=== PATIENT | male | born 1965 | race American Indian/Alaskan Native ===

== ENCOUNTER 2018-05-26 08:07 | Inpatient (IN) | payer OTHER ==
[2018-05-26 08:34] LABS: Basophils # (Auto) 0.1 K/mm3 (0.0-0.1); Basophils % (Auto) 0.4 % (0.0-1.8); Eosinophils # (Auto) 0.2 K/mm3 (0.0-0.4); Eosinophils % (Auto) 1.3 % (0.0-4.3); Hematocrit 40.2 % (35.5-45.6); Hemoglobin 13.5 gm/dl (11.8-15.2); Lymphocytes # (Auto) 1.9 K/mm3 (1.2-5.4); Lymphocytes % (Auto) 14.3 % (13.4-35.0); Mean Corpuscular HGB Conc 34 % (32-34); Mean Corpuscular Hemoglobin 28 pg (28-32); Mean Corpuscular Volume 84 fl (84-94); Monocytes # (Auto) 0.9 K/mm3 (0.0-0.8); Monocytes % (Auto) 6.5 % (0.0-7.3); Platelet Count 317 K/mm3 (140-440); Red Blood Count 4.77 M/mm3 (3.65-5.03); Red Cell Distribution Width 14.9 % (13.2-15.2)
--- NOTE | 2018-05-26 08:40 | XRay Report ---
ROUTINE CHEST, TWO VIEWS: HISTORY: Shortness of breath. Bilateral perihilar infiltration is identified which probably represents mild pulmonary edema. Early bilateral infiltrates could be considered. No evidence for pleural effusion or pneumothorax. Heart size is within normal limits. The bony structures are intact. IMPRESSION: Bilateral perihilar infiltrates suggesting pulmonary edema or pneumonia. I favor pulmonary edema. Correlate with the patient's clinical presentation.
[2018-05-26 08:45] LABS: BUN/Creatinine Ratio 11; Blood Urea Nitrogen 10 mg/dL (9-20); Calcium 9.4 mg/dL (8.4-10.2); Hemolysis Index 1
--- NOTE | 2018-05-26 09:19 | Emergency Department Report ---
ED General Adult HPI - General Chief complaint: Dyspnea/Respdistress Stated complaint: SANDRA Time Seen by Provider: 05/26/18 09:15 Source: patient Mode of arrival: Ambulatory Limitations: No Limitations - History of Present Illness Initial comments: This is a 52-year-old man who complains of dyspnea on exertion, orthopnea, recently PND. He states he's had to sleep in a chair. He hasn't measured his blood pressure in many years. He states he hasn't seen a doctor in 25 years. He is currently taking no medications. His initial blood pressure at triage was 152/133, heart rate 121. He was placed in an examination area and found to have a blood pressure of about 140/101 I repeated it. He does not complain of chest pain. He has not complained of chest tightness or significant leg edema. Associated Symptoms: denies other symptoms - Related Data Home Medications Medication Instructions Recorded Confirmed Last Taken No Known Home Medications [No 05/26/18 05/26/18 Unknown Reported Home Medications] Allergies Allergy/AdvReac Type Severity Reaction Status Date / Time No Known Allergies Allergy Verified 05/26/18 13:47 ED Review of Systems ROS: Stated complaint: SANDRA Other details as noted in HPI Constitutional: denies: chills, fever Eyes: denies: eye pain, eye discharge, vision change ENT: denies: ear pain, throat pain Respiratory: shortness of breath, SOB with exertion. denies: cough, wheezing Cardiovascular: denies: chest pain, palpitations Endocrine: no symptoms reported Gastrointestinal: denies: abdominal pain, nausea, diarrhea Genitourinary: denies: urgency, dysuria Musculoskeletal: denies: back pain, joint swelling, arthralgia Skin: denies: rash, lesions Neurological: headache (occasional headaches but not currently. No severe headaches.). denies: weakness, numbness, paresthesias, confusion, abnormal gait , vertigo Psychiatric: denies: anxiety, depression Hematological/Lymphatic: denies: easy bleeding, easy bruising ED Past Medical Hx - Past Medical History Previous Medical History?: No - Surgical History Past Surgical History?: No - Social History Smoking Status: Current Every Day Smoker Substance Use Type: Marijuana - Medications Home Medications: Home Medications Medication Instructions Recorded Confirmed Last Taken Type No Known Home Medications [No 05/26/18 05/26/18 Unknown History Reported Home Medications] ED Physical Exam - General Limitations: No Limitations General appearance: alert, in no apparent distress - Head Head exam: Present: atraumatic, normocephalic - Eye Eye exam: Present: normal appearance, PERRL, EOMI. Absent: scleral icterus - ENT ENT exam: Present: mucous membranes moist - Neck Neck exam: Present: normal inspection. Absent: tenderness, meningismus - Respiratory Respiratory exam: Present: normal lung sounds bilaterally. Absent: respiratory distress - Cardiovascular Cardiovascular Exam: Present: regular rate, normal rhythm. Absent: systolic murmur, diastolic murmur, rubs, gallop - GI/Abdominal GI/Abdominal exam: Present: soft, normal bowel sounds. Absent: distended, tenderness, guarding, rebound, rigid - Rectal Rectal exam: Present: deferred - Extremities Exam Extremities exam: Present: normal inspection - Back Exam Back exam: Present: normal inspection - Neurological Exam Neurological exam: Present: alert, oriented X3, CN II-XII intact. Absent: motor sensory deficit - Psychiatric Psychiatric exam: Present: normal affect, normal mood - Skin Skin exam: Present: warm, dry, intact, normal color. Absent: rash ED Course Vital Signs 05/26/18 05/26/18 05/26/18 08:15 09:28 09:39 Temperature 97.8 F Pulse Rate 121 H 85 Respiratory 24 Rate Blood Pressure 152/133 143/101 O2 Sat by Pulse 98 Oximetry 05/26/18 05/26/18 05/26/18 09:46 09:52 10:00 Temperature Pulse Rate 118 H 111 H 112 H Respiratory 30 H 27 H Rate Blood Pressure 143/101 143/101 141/98 O2 Sat by Pulse 98 98 Oximetry 05/26/18 05/26/18 05/26/18 10:16 10:30 10:46 Temperature Pulse Rate 115 H 121 H 117 H Respiratory 36 H 26 H 35 H Rate Blood Pressure 138/90 138/109 146/98 O2 Sat by Pulse 98 98 98 Oximetry 05/26/18 05/26/18 05/26/18 11:00 11:46 12:00 Temperature Pulse Rate 118 H 113 H 108 H Respiratory 27 H 18 29 H Rate Blood Pressure 140/92 131/95 132/86 O2 Sat by Pulse 96 98 99 Oximetry 05/26/18 05/26/18 05/26/18 12:16 12:30 12:40 Temperature Pulse Rate 111 H 113 H 124 H Respiratory 23 30 H 30 H Rate Blood Pressure 139/89 144/91 O2 Sat by Pulse 98 97 97 Oximetry 05/26/18 05/26/18 05/26/18 12:50 13:00 13:10 Temperature Pulse Rate 115 H 111 H 110 H Respiratory 17 33 H 20 Rate Blood Pressure 113/65 113/65 O2 Sat by Pulse 98 99 98 Oximetry 05/26/18 13:20 Temperature Pulse Rate 119 H Respiratory 15 Rate Blood Pressure 161/145 O2 Sat by Pulse 99 Oximetry ED Medical Decision Making - Lab Data Result diagrams: 05/26/18 08:24 05/26/18 08:24 Laboratory Results - last 24 hr 05/26/18 05/26/18 08:24 08:24 WBC 13.3 H RBC 4.77 Hgb 13.5 Hct 40.2 MCV 84 MCH 28 MCHC 34 RDW 14.9 Plt Count 317 Lymph % (Auto) 14.3 [place] % (Auto) 6.5 Eos % (Auto) 1.3 Baso % (Auto) 0.4 Lymph # 1.9 [place] # 0.9 H Eos # 0.2 Baso # 0.1 Seg Neutrophils % 77.5 H Seg Neutrophils # 10.3 H Sodium 138 Potassium 4.0 Chloride 102.4 Carbon Dioxide 25 Anion Gap 15 BUN 10 Creatinine 0.9 Estimated GFR > 60 BUN/Creatinine Ratio 11 Glucose 111 H Calcium 9.4 Troponin T 0.019 - EKG Data -: EKG Interpreted by Me EKG shows normal: sinus rhythm - EKG Data Interpretation: other (biatrial abnormality right bundle branch block secondary repolarization abnormality) - Radiology Data Radiology results: report reviewed interpreted by me: Bilateral perihilar infiltration is identified which probably represents mild pulmonary edema. Early bilateral infiltrates could be considered. No evidence for pleural effusion or pneumothorax. Heart size is within normal limits. The bony structures are intact. IMPRESSION: Bilateral perihilar infiltrates suggesting pulmonary edema or pneumonia. I favor pulmonary edema. Correlate with the patient's clinical presentation. Critical care attestation.: If time is entered above; I have spent that time in minutes in the direct care of this critically ill patient, excluding procedure time. ED Disposition Clinical Impression: Uncontrolled hypertension Pulmonary edema Qualifiers: Chronicity: acute Qualified Code(s): J81.0 - Acute pulmonary edema Disposition: DC-09 OP ADMIT IP TO THIS HOSP Is pt being admited?: Yes Does the pt Need Aspirin: Yes Condition: Stable Time of Disposition: 11:35
[2018-05-26] MEDS ORDERED: LASIX IV ONE (09:20)
[2018-05-26] MEDS ORDERED: NORMODYNE IV ONE (09:20)
[2018-05-26] MEDS ORDERED: NITRO-BID 2% TP ONE (09:30)
[2018-05-26 09:40] LABS: Creatine Kinase MB 2.2 ng/mL (0.0-4.0)
[2018-05-26 09:41] LABS: Alanine Aminotransferase 20 units/L (7-56); Albumin 3.5 g/dL (3.9-5); Bilirubin,Direct < 0.2 mg/dL (0-0.2)
[2018-05-26 09:46] LABS: INR 1.05 (0.87-1.13)
--- NOTE | 2018-05-26 10:11 | History and Physical Report ---
History of Present Illness Chief complaint: orthopnea History of present illness: 52M with SOB he has never had any chronic illness, states that he had an insect bite on his left nipple which swole up and became and abscess and then burst, expelling a lot of pus. He then developed worsening orthopnea and COOK which was so bad that he had to sit up to sleep. He was co PND, denies CP or palpitations - Past History Past Medical History: No medical history Past Surgical History: No surgical history Social history: smoking, other (marijuana abuse) Family history: cancer, hypertension Medications and Allergies Allergies Allergy/AdvReac Type Severity Reaction Status Date / Time No Known Allergies Allergy Verified 05/26/18 13:47 Home Medications Medication Instructions Recorded Confirmed Last Taken Type No Known Home Medications [No 05/26/18 05/26/18 Unknown History Reported Home Medications] Review of Systems Constitutional: anorexia Ears, nose, mouth and throat: no sinus pain Cardiovascular: orthopnea, no chest pain, no palpitations, no edema Respiratory: no cough Gastrointestinal: no abdominal pain Genitourinary Male: no dysuria Musculoskeletal: no neck stiffness Neurological: no parathesias Psychiatric: no anxiety Endocrine: no cold intolerance Exam - Constitutional Vitals: Temp Pulse Resp BP Pulse Ox 97.8 F 111 H 24 143/101 98 05/26/18 08:15 05/26/18 09:52 05/26/18 08:15 05/26/18 09:52 05/26/18 08:15 General appearance: Present: no acute distress, well-nourished - EENT Eyes: Present: PERRL ENT: hearing intact, clear oral mucosa - Neck Neck: Present: supple, normal ROM - Respiratory Respiratory effort: normal Respiratory: bilateral: rales - Cardiovascular Heart Sounds: Present: S1 & S2. Absent: rub, click - Extremities Extremities: pulses symmetrical, No edema Peripheral Pulses: within normal limits - Abdominal General gastrointestinal: Present: soft, non-tender, non-distended, normal bowel sounds Male genitourinary: Present: normal - Integumentary Integumentary: Present: clear, warm (there is fluctuant swelling of left nipple cw abscess), dry - Musculoskeletal Musculoskeletal: gait normal, strength equal bilaterally - Psychiatric Psychiatric: appropriate mood/affect, intact judgment & insight - Neurologic Neurologic: CNII-XII intact, moves all extremities Results - Labs CBC & Chem 7: 05/26/18 08:24 05/27/18 03:54 Labs: Laboratory Last Values WBC 13.3 K/mm3 (4.5-11.0) H 05/26/18 08:24 RBC 4.77 M/mm3 (3.65-5.03) 05/26/18 08:24 Hgb 13.5 gm/dl (11.8-15.2) 05/26/18 08:24 Hct 40.2 % (35.5-45.6) 05/26/18 08:24 MCV 84 fl (84-94) 05/26/18 08:24 MCH 28 pg (28-32) 05/26/18 08:24 MCHC 34 % (32-34) 05/26/18 08:24 RDW 14.9 % (13.2-15.2) 05/26/18 08:24 Plt Count 317 K/mm3 (140-440) 05/26/18 08:24 Lymph % (Auto) 14.3 % (13.4-35.0) 05/26/18 08:24 [place] % (Auto) 6.5 % (0.0-7.3) 05/26/18 08:24 Eos % (Auto) 1.3 % (0.0-4.3) 05/26/18 08:24 Baso % (Auto) 0.4 % (0.0-1.8) 05/26/18 08:24 Lymph # 1.9 K/mm3 (1.2-5.4) 05/26/18 08:24 [place] # 0.9 K/mm3 (0.0-0.8) H 05/26/18 08:24 Eos # 0.2 K/mm3 (0.0-0.4) 05/26/18 08:24 Baso # 0.1 K/mm3 (0.0-0.1) 05/26/18 08:24 Seg Neutrophils % 77.5 % (40.0-70.0) H 05/26/18 08:24 Seg Neutrophils # 10.3 K/mm3 (1.8-7.7) H 05/26/18 08:24 PT 14.2 Sec. (12.2-14.9) 05/26/18 09:24 INR 1.05 (0.87-1.13) 05/26/18 09:24 APTT 31.0 Sec. (24.2-36.6) 05/26/18 09:24 Sodium 138 mmol/L (137-145) 05/26/18 08:24 Potassium 4.0 mmol/L (3.6-5.0) 05/26/18 08:24 Chloride 102.4 mmol/L (98-107) 05/26/18 08:24 Carbon Dioxide 25 mmol/L (22-30) 05/26/18 08:24 Anion Gap 15 mmol/L 05/26/18 08:24 BUN 10 mg/dL (9-20) 05/26/18 08:24 Creatinine 0.9 mg/dL (0.8-1.5) 05/26/18 08:24 Estimated GFR > 60 ml/min 05/26/18 08:24 BUN/Creatinine Ratio 11 % 05/26/18 08:24 Glucose 111 mg/dL (75-100) H 05/26/18 08:24 Calcium 9.4 mg/dL (8.4-10.2) 05/26/18 08:24 Magnesium 1.90 mg/dL (1.7-2.3) 05/26/18 08:24 Total Bilirubin 0.50 mg/dL (0.1-1.2) 05/26/18 08:24 Direct Bilirubin < 0.2 mg/dL (0-0.2) 05/26/18 08:24 Indirect Bilirubin 0.3 mg/dL 05/26/18 08:24 AST 19 units/L (5-40) 05/26/18 08:24 ALT 20 units/L (7-56) 05/26/18 08:24 Alkaline Phosphatase 74 units/L (35-129) 05/26/18 08:24 Total Creatine Kinase 89 units/L (55-170) 05/26/18 08:24 CK-MB (CK-2) 2.2 ng/mL (0.0-4.0) 05/26/18 08:24 CK-MB (CK-2) Rel Index 2.4 (0-4) 05/26/18 08:24 Troponin T 0.010 ng/mL (0.00-0.029) 05/26/18 08:24 NT-Pro-B Natriuret Pep 3119 pg/mL (0-900) H 05/26/18 08:24 Total Protein 7.2 g/dL (6.3-8.2) 05/26/18 08:24 Albumin 3.5 g/dL (3.9-5) L 05/26/18 08:24 Albumin/Globulin Ratio 0.9 % 05/26/18 08:24 - Imaging and Cardiology Chest x-ray: image reviewed (perihilar infiltrates) Assessment and Plan Assessment and plan: 52M with CHF exacerbation new onset CHF already improving with lasix echo, cardiology consult, optimize meds Left nipple abscess surgery consulted for drainage empiric abx tobacco and THC abuse he was counseled Plan of care discussed with patient/family: Yes
[2018-05-26] MEDS: LASIX IV SCH (17:04)
[2018-05-26] MEDS: UNASYN/NS 1.5 GM/50 ML 1.5 GM/50 ML BAG IV SCH (23:01)
[2018-05-27 04:52] LABS: BUN/Creatinine Ratio 13; Blood Urea Nitrogen 14 mg/dL (9-20); Calcium 9.1 mg/dL (8.4-10.2); Hemolysis Index 1
[2018-05-27] MEDS: UNASYN/NS 1.5 GM/50 ML 1.5 GM/50 ML BAG IV SCH ×4 (05:29→18:00)
[2018-05-27] MEDS: LASIX IV SCH ×2 (05:29→21:02)
--- NOTE | 2018-05-27 10:00 | Event Note ---
Date: 05/27/18 Pt not in the room. Will come back later.
--- NOTE | 2018-05-27 10:17 | Consultation ---
History of Present Illness Consult date: 05/27/18 Consult reason: congestive heart failure History of present illness: Patient is a 52-year-old man who presents with 3 weeks of progressive exertional dyspnea. EKG on presentation was sinus rhythm with nonspecific ST and T-wave abnormalities. Chest x-ray was markedly abnormal, with evidence of significant cardiomegaly and bilateral interstitial edema. Was admitted by the hospitalist service and stress test was ordered. Cardiology consultation was also requested. Patient denies any prior cardiac history. Blood pressure on presentation was 150 systolic. Past History Past Medical History: No medical history Past Surgical History: No surgical history Social history: smoking, other (marijuana abuse) Family history: cancer, hypertension Medications and Allergies Allergies Allergy/AdvReac Type Severity Reaction Status Date / Time No Known Allergies Allergy Verified 05/26/18 13:47 Home Medications Medication Instructions Recorded Confirmed Last Taken Type No Known Home Medications [No 05/26/18 05/26/18 Unknown History Reported Home Medications] Active Meds: Active Medications Furosemide (Lasix) 40 mg IV 0600,1800 [facility] Last Admin: 05/27/18 05:29 Dose: 40 mg Ampicillin Sodium/Sulbactam Sodium (Unasyn/Ns 1.5 Gm/50 Ml) 1.5 gm in 50 mls @ 100 mls/hr IV Q6HR [facility]; Protocol Last Admin: 05/27/18 05:29 Dose: 100 mls/hr Review of Systems Cardiovascular: orthopnea, shortness of breath, no chest pain, no palpitations, no rapid/irregular heart beat, no edema, no syncope, no lightheadedness Physical Examination Vital Signs Temp Pulse Resp BP Pulse Ox 97.8 F 121 H 24 152/133 98 05/26/18 08:15 05/26/18 08:15 05/26/18 08:15 05/26/18 08:15 05/26/18 08:15 General appearance: no acute distress HEENT: Positive: PERRL Neck: Positive: neck supple Cardiac: Positive: Reg Rate and Rhythm Lungs: Positive: Decreased Breath Sounds Neuro: Positive: Grossly Intact Abdomen: Positive: Soft Male genitourinary: Positive: deferred Skin: Positive: Clear Extremities: Absent: edema Results 05/26/18 08:24 05/27/18 03:54 Comprehensive Metabolic Panel 05/27/18 Range/Units 03:54 Sodium 140 (137-145) mmol/L Potassium 3.7 (3.6-5.0) mmol/L Chloride 98.3 (98-107) mmol/L Carbon Dioxide 25 (22-30) mmol/L BUN 14 (9-20) mg/dL Creatinine 1.1 (0.8-1.5) mg/dL Glucose 78 (75-100) mg/dL Calcium 9.1 (8.4-10.2) mg/dL EKG interpretations - Telemetry EKG Rhythm: Sinus Rhythm Assessment and Plan - Patient Problems (1) Pulmonary edema Current Visit: Yes Status: Acute Qualifiers: Chronicity: acute Qualified Code(s): J81.0 - Acute pulmonary edema Plan to address problem: 52-year-old man who presents with symptoms of acute congestive heart failure, no prior history. Recommendations: Heart failure and fluid overload needs to be optimally treated with diuretics, before stress testing. Echocardiogram for left ventricular function assessment. Treatment with afterload dressing agents, beta blockers, diuretics. Further cardiac evaluation and management depends on clinical course.
[2018-05-27] MEDS: ZESTRIL PO SCH (11:55)
[2018-05-27] MEDS: ALDACTONE PO SCH (11:55)
[2018-05-27] MEDS: BABY ASPIRIN PO SCH (11:56)
[2018-05-27] MEDS ORDERED: XYLOCAINE 1%/ EPI 1:100,000 INFILTRATI ONE (14:00)
--- NOTE | 2018-05-27 14:53 | Progress Note ---
Assessment and Plan Assessment and plan: Patient is a 52 yo man without chronic medical problems who presents with SOB new onset CHF already improving with lasix echo, cardiology consult, optimize meds Left nipple abscess surgery consulted for drainage empiric abx tobacco and THC abuse he was counseled History Interval history: Patient was seen and examined. Follow-up on current diagnosis of sob, improved. Overnight uneventful. Patient denies any chest pain, nausea/vomiting or severe headaches. Imaging, nursing note, chart, labs and old chart reviewed. Discussed with patient. Hospitalist Physical - Physical exam Narrative exam: GEN: WDWN, NAD, Awake, Alert, Orientated x 3 HEENT: NCAT, EOMI, PERRL, OP Clear NECK: supple, no adenopathy, no thyromegaly, no JVD CVS/HEART: RRR, normal S1S2, pulses present bilaterally CHEST/LUNGS: diminished bs bilaterally, Symmetrical chest expansion, good air entry bilaterally GI/Abdomen: soft, NTND, good bowel sounds, no guarding or rebound /Bladder: no suprapubic tenderness, no CVA or paraspinal tenderness EXT/Skin: nipple abscess MSK: FROM x 4 Neuro: CN 2-12 grossly intact, no new focal deficits Psych: calm - Constitutional Vitals: Temp Pulse Resp BP Pulse Ox 98.3 F 115 H 18 115/75 95 05/27/18 06:37 05/27/18 08:00 05/27/18 06:37 05/27/18 06:37 05/27/18 06:37 General appearance: Present: no acute distress Results - Labs CBC & Chem 7: 05/26/18 08:24 05/27/18 03:54 Labs: Laboratory Last Values WBC 13.3 K/mm3 (4.5-11.0) H 05/26/18 08:24 RBC 4.77 M/mm3 (3.65-5.03) 05/26/18 08:24 Hgb 13.5 gm/dl (11.8-15.2) 05/26/18 08:24 Hct 40.2 % (35.5-45.6) 05/26/18 08:24 MCV 84 fl (84-94) 05/26/18 08:24 MCH 28 pg (28-32) 05/26/18 08:24 MCHC 34 % (32-34) 05/26/18 08:24 RDW 14.9 % (13.2-15.2) 05/26/18 08:24 Plt Count 317 K/mm3 (140-440) 05/26/18 08:24 Lymph % (Auto) 14.3 % (13.4-35.0) 05/26/18 08:24 [place] % (Auto) 6.5 % (0.0-7.3) 05/26/18 08:24 Eos % (Auto) 1.3 % (0.0-4.3) 05/26/18 08:24 Baso % (Auto) 0.4 % (0.0-1.8) 05/26/18 08:24 Lymph # 1.9 K/mm3 (1.2-5.4) 05/26/18 08:24 [place] # 0.9 K/mm3 (0.0-0.8) H 05/26/18 08:24 Eos # 0.2 K/mm3 (0.0-0.4) 05/26/18 08:24 Baso # 0.1 K/mm3 (0.0-0.1) 05/26/18 08:24 Seg Neutrophils % 77.5 % (40.0-70.0) H 05/26/18 08:24 Seg Neutrophils # 10.3 K/mm3 (1.8-7.7) H 05/26/18 08:24 PT 14.2 Sec. (12.2-14.9) 05/26/18 09:24 INR 1.05 (0.87-1.13) 05/26/18 09:24 APTT 31.0 Sec. (24.2-36.6) 05/26/18 09:24 Sodium 140 mmol/L (137-145) 05/27/18 03:54 Potassium 3.7 mmol/L (3.6-5.0) 05/27/18 03:54 Chloride 98.3 mmol/L (98-107) 05/27/18 03:54 Carbon Dioxide 25 mmol/L (22-30) 05/27/18 03:54 Anion Gap 20 mmol/L 05/27/18 03:54 BUN 14 mg/dL (9-20) 05/27/18 03:54 Creatinine 1.1 mg/dL (0.8-1.5) 05/27/18 03:54 Estimated GFR > 60 ml/min 05/27/18 03:54 BUN/Creatinine Ratio 13 % 05/27/18 03:54 Glucose 78 mg/dL (75-100) 05/27/18 03:54 Calcium 9.1 mg/dL (8.4-10.2) 05/27/18 03:54 Magnesium 1.90 mg/dL (1.7-2.3) 05/27/18 00:23 Total Bilirubin 0.50 mg/dL (0.1-1.2) 05/26/18 08:24 Direct Bilirubin < 0.2 mg/dL (0-0.2) 05/26/18 08:24 Indirect Bilirubin 0.3 mg/dL 05/26/18 08:24 AST 19 units/L (5-40) 05/26/18 08:24 ALT 20 units/L (7-56) 05/26/18 08:24 Alkaline Phosphatase 74 units/L (35-129) 05/26/18 08:24 Total Creatine Kinase 89 units/L (55-170) 05/26/18 08:24 CK-MB (CK-2) 2.2 ng/mL (0.0-4.0) 05/26/18 08:24 CK-MB (CK-2) Rel Index 2.4 (0-4) 05/26/18 08:24 Troponin T 0.010 ng/mL (0.00-0.029) 05/26/18 08:24 NT-Pro-B Natriuret Pep 3119 pg/mL (0-900) H 05/26/18 08:24 Total Protein 7.2 g/dL (6.3-8.2) 05/26/18 08:24 Albumin 3.5 g/dL (3.9-5) L 05/26/18 08:24 Albumin/Globulin Ratio 0.9 % 05/26/18 08:24
--- NOTE | 2018-05-27 15:26 | Consultation ---
History of Present Illness Consult date: 05/27/18 Reason for consult: other (abscess) Requesting physician: JONEL CHRISTIAN Chief complaint: Left nipple swelling - History of present illness History of present illness: 52yo M presents for SOB and found to have acute heart failure. We are asked to see him for an abscess near the left nipple. Pt reports that it began 3 weeks ago. At that time, it spontaneously drained and then closed. Ever since then, there has remained a swelling in that area. Denies any F/C/N/V. Denies any redness or pain. Would like to have it drained. Past History Past Medical History: No medical history Past Surgical History: No surgical history Social history: smoking, other (marijuana abuse) Family history: cancer, hypertension Medications and Allergies Allergies Allergy/AdvReac Type Severity Reaction Status Date / Time No Known Allergies Allergy Verified 05/26/18 13:47 Home Medications Medication Instructions Recorded Confirmed Last Taken Type No Known Home Medications [No 05/26/18 05/26/18 Unknown History Reported Home Medications] Active Meds: Active Medications Aspirin (Baby Aspirin) 81 mg PO QDAY [facility] Last Admin: 05/27/18 11:56 Dose: 81 mg Carvedilol (Coreg) 3.125 mg PO BID [facility] Furosemide (Lasix) 40 mg IV 0600,1800 [facility] Last Admin: 05/27/18 05:29 Dose: 40 mg Ampicillin Sodium/Sulbactam Sodium (Unasyn/Ns 1.5 Gm/50 Ml) 1.5 gm in 50 mls @ 100 mls/hr IV Q6HR [facility]; Protocol Last Admin: 05/27/18 15:14 Dose: 100 mls/hr Lisinopril (Zestril) 5 mg PO QDAY [facility] Last Admin: 05/27/18 11:55 Dose: 5 mg Spironolactone (Aldactone) 25 mg PO QDAY [facility] Last Admin: 05/27/18 11:55 Dose: 25 mg Review of Systems - Constitutional no fever, no chills, no chronic pain - Cardiovascular chest pain (no chest wall pain at site of swelling) - Respiratory shortness of breath (resolved now) - Gastrointestinal no abdominal pain - Muskuloskeletal no shooting arm pain, no arm numbness/tingling - Integumentary no rash, no pruritis, no redness, no sores Exam Vital Signs Temp Pulse Resp BP Pulse Ox 97.8 F 121 H 24 152/133 98 05/26/18 08:15 05/26/18 08:15 05/26/18 08:15 05/26/18 08:15 05/26/18 08:15 - General physical appearance Positive: no distress, no pain, other (very pleasant) - Eyes Positive: normal occular movement - Respiratory Positive: normal expansion, normal respiratory effort - Extremities Extremities: normal temperature, normal color - Breasts Breasts: nipple abnormal (on left side. swelling and fluctunant area noted. No tenderness. no erythema. About 3cm in diameter) - Integumentary no rash - Neurologic Neurologic: alert and oriented to time, place and person, motor strength and sensation are grossly intact - Psychiatric Psychiatric: appropriate mood/affect, intact judgment & insight Results - Labs 05/26/18 08:24 05/27/18 03:54 Diabetes panel 05/27/18 Range/Units 03:54 Sodium 140 (137-145) mmol/L Potassium 3.7 (3.6-5.0) mmol/L Chloride 98.3 (98-107) mmol/L Carbon Dioxide 25 (22-30) mmol/L BUN 14 (9-20) mg/dL Creatinine 1.1 (0.8-1.5) mg/dL Glucose 78 (75-100) mg/dL Calcium 9.1 (8.4-10.2) mg/dL Calcium panel 05/27/18 Range/Units 03:54 Calcium 9.1 (8.4-10.2) mg/dL Pituitary panel 05/27/18 Range/Units 03:54 Sodium 140 (137-145) mmol/L Potassium 3.7 (3.6-5.0) mmol/L Chloride 98.3 (98-107) mmol/L Carbon Dioxide 25 (22-30) mmol/L BUN 14 (9-20) mg/dL Creatinine 1.1 (0.8-1.5) mg/dL Glucose 78 (75-100) mg/dL Calcium 9.1 (8.4-10.2) mg/dL Adrenal panel 05/27/18 Range/Units 03:54 Sodium 140 (137-145) mmol/L Potassium 3.7 (3.6-5.0) mmol/L Chloride 98.3 (98-107) mmol/L Carbon Dioxide 25 (22-30) mmol/L BUN 14 (9-20) mg/dL Creatinine 1.1 (0.8-1.5) mg/dL Glucose 78 (75-100) mg/dL Calcium 9.1 (8.4-10.2) mg/dL Assessment and Plan - Patient Problems (1) Cyst of skin and subcutaneous tissue Current Visit: Yes Status: Acute Plan to address problem: Pt stable. Appears to be a chronic process based on history and appearance. Will drain per patient's request. Procedure, risks, benefits, alternatives discussed. All questions answered. Consent obtained. Time=30min
[2018-05-27] MEDS ORDERED: K-DUR PO ONE (15:44)
--- NOTE | 2018-05-27 15:57 | Procedure Note ---
Date of procedure: 05/27/18 Pre-op diagnosis: skin cyst Post-op diagnosis: same Procedure: I&D of cyst Findings: mixture of serous fluid and old blood Anesthesia: local Surgeon: JEAN BELL Estimated blood loss: minimal Pathology: list (culture swab) Specimen disposition: to lab Condition: stable Disposition: floor
[2018-05-27] MEDS ORDERED: MAGNESIUM SULFATE 2GM/50ML 2 GM/50 ML BAG IV ONE (16:30)
--- NOTE | 2018-05-27 17:32 | Event Note ---
Date: 05/27/18 Patient was noted with nonsustained ventricular tachycardia on remote telemetry monitoring. Recommendations for asymptomatic nonsustained ventricular tachycardia, we will increase beta soto therapy, recommend a medical service to optimize electrolytes including potassium and magnesium levels. Once his heart failure is optimally treated and is ready for discharge, he may benefit from outpatient LifeVest monitoring.
[2018-05-28] MEDS: UNASYN/NS 1.5 GM/50 ML 1.5 GM/50 ML BAG IV SCH ×4 (00:30→18:28)
[2018-05-28 05:35] LABS: Hematocrit 43.4 % (35.5-45.6); Hemoglobin 14.3 gm/dl (11.8-15.2); Mean Corpuscular HGB Conc 33 % (32-34); Mean Corpuscular Hemoglobin 28 pg (28-32); Mean Corpuscular Volume 85 fl (84-94); Platelet Count 337 K/mm3 (140-440); Red Cell Distribution Width 14.5 % (13.2-15.2)
[2018-05-28] MEDS: LASIX IV SCH ×2 (05:40→18:26)
[2018-05-28 05:50] LABS: BUN/Creatinine Ratio 14; Blood Urea Nitrogen 14 mg/dL (9-20); Calcium 9.7 mg/dL (8.4-10.2)
[2018-05-28 05:51] LABS: Hemolysis Index 3
--- NOTE | 2018-05-28 07:18 | Treadmill Report ---
THALLIUM STRESS TEST LEFT VENTRICLE: Left ventricle is severely dilated. Perfusion study demonstrates a moderate to large, mostly fixed inferior defect. On the resting study, there is a very mild degree of reversibility. Gated analysis demonstrates severe left ventricular systolic dysfunction, ejection fraction 10%. CONCLUSION: Evidence of a severe dilated cardiomyopathy, severe left ventricular systolic dysfunction, ejection fraction 10%. Fixed inferior wall defect may demonstrate diaphragmatic attenuation artifact. I cannot exclude a prior inferior wall myocardial infarction. I cannot exclude a mild degree of reversible inferior ischemia. Clinical correlation is recommended. [facility]# [id number] [place]/NTS
[2018-05-28] MEDS ORDERED: COREG PO SCH (10:00)
--- NOTE | 2018-05-28 10:14 | Progress Note ---
Assessment and Plan Acute systolic heart failure EF 10-15% by echo no significant reversible ischemia on MPI this admission Continue medical therapy for decompensated heart failure. Lifevest placement before discharge. Subjective Date of service: 05/28/18 Interval history: Patient is resting in bed comfortably. No reported events on telemetry overnight. Objective Vital Signs Temp Pulse Pulse Resp BP Pulse Ox 05/28/18 05:56 98.9 F 94 H 16 100/63 97 05/27/18 22:00 100 H 16 97 05/27/18 12:40 97.7 F 105 H 20 116/76 97 - Physical Examination General: No Apparent Distress HEENT: Positive: PERRL Cardiac: Positive: Reg Rate and Rhythm - Labs and Meds CBC 05/28/18 Range/Units 04:51 WBC 11.4 H (4.5-11.0) K/mm3 RBC 5.10 H (3.65-5.03) M/mm3 Hgb 14.3 (11.8-15.2) gm/dl Hct 43.4 (35.5-45.6) % Plt Count 337 (140-440) K/mm3 Comprehensive Metabolic Panel 05/28/18 Range/Units 04:51 Sodium 137 (137-145) mmol/L Potassium 3.9 (3.6-5.0) mmol/L Chloride 98.0 (98-107) mmol/L Carbon Dioxide 29 (22-30) mmol/L BUN 14 (9-20) mg/dL Creatinine 1.0 (0.8-1.5) mg/dL Glucose 102 H (75-100) mg/dL Calcium 9.7 (8.4-10.2) mg/dL
[2018-05-28] MEDS: ZESTRIL PO SCH (10:21)
[2018-05-28] MEDS: ALDACTONE PO SCH (10:21)
[2018-05-28] MEDS: COREG PO SCH ×2 (10:50→22:51)
[2018-05-28] MEDS: BABY ASPIRIN PO SCH (10:52)
--- NOTE | 2018-05-28 16:22 | Progress Note ---
Assessment and Plan Assessment and plan: Patient is a 52 yo man without chronic medical problems who presents with SOB new onset Acute HFrEF, EF 10-15% already improving with lasix echo, cardiology consult, optimize meds awaiting LifeVest Nonsustained ventricular tachycardia: increase beta soto therapy, awaiting Lifevest Left nipple cyst s/p excisional drainage 05/27/18 surgery consulted for drainage empiric abx tobacco and THC abuse he was counseled History Interval history: Patient was seen and examined. Follow-up on current diagnosis of sob, improved. Overnight uneventful. Patient denies any chest pain, nausea/vomiting or severe headaches. Imaging, nursing note, chart, labs and old chart reviewed. Discussed with patient. He wants to go home. We discussed the importance of the LifeVest. Hospitalist Physical - Physical exam Narrative exam: GEN: WDWN, NAD, Awake, Alert, Orientated x 3 HEENT: NCAT, EOMI, PERRL, OP Clear NECK: supple, no adenopathy, no thyromegaly, no JVD CVS/HEART: RRR, normal S1S2, pulses present bilaterally CHEST/LUNGS: diminished bs bilaterally, Symmetrical chest expansion, good air entry bilaterally GI/Abdomen: soft, NTND, good bowel sounds, no guarding or rebound /Bladder: no suprapubic tenderness, no CVA or paraspinal tenderness EXT/Skin: left nipple cyst smaller with surgical excision and packing in place MSK: FROM x 4 Neuro: CN 2-12 grossly intact, no new focal deficits Psych: calm - Constitutional Vitals: Temp Pulse Resp BP Pulse Ox 97.4 F L 99 H 20 105/66 98 05/28/18 11:53 05/28/18 11:53 05/28/18 11:53 05/28/18 11:53 05/28/18 11:53 General appearance: Present: no acute distress Results - Labs CBC & Chem 7: 05/28/18 04:51 05/28/18 04:51 Labs: Laboratory Last Values WBC 11.4 K/mm3 (4.5-11.0) H 05/28/18 04:51 RBC 5.10 M/mm3 (3.65-5.03) H 05/28/18 04:51 Hgb 14.3 gm/dl (11.8-15.2) 05/28/18 04:51 Hct 43.4 % (35.5-45.6) 05/28/18 04:51 MCV 85 fl (84-94) 05/28/18 04:51 MCH 28 pg (28-32) 05/28/18 04:51 MCHC 33 % (32-34) 05/28/18 04:51 RDW 14.5 % (13.2-15.2) 05/28/18 04:51 Plt Count 337 K/mm3 (140-440) 05/28/18 04:51 Lymph % (Auto) 14.3 % (13.4-35.0) 05/26/18 08:24 [place] % (Auto) 6.5 % (0.0-7.3) 05/26/18 08:24 Eos % (Auto) 1.3 % (0.0-4.3) 05/26/18 08:24 Baso % (Auto) 0.4 % (0.0-1.8) 05/26/18 08:24 Lymph # 1.9 K/mm3 (1.2-5.4) 05/26/18 08:24 [place] # 0.9 K/mm3 (0.0-0.8) H 05/26/18 08:24 Eos # 0.2 K/mm3 (0.0-0.4) 05/26/18 08:24 Baso # 0.1 K/mm3 (0.0-0.1) 05/26/18 08:24 Seg Neutrophils % 77.5 % (40.0-70.0) H 05/26/18 08:24 Seg Neutrophils # 10.3 K/mm3 (1.8-7.7) H 05/26/18 08:24 PT 14.2 Sec. (12.2-14.9) 05/26/18 09:24 INR 1.05 (0.87-1.13) 05/26/18 09:24 APTT 31.0 Sec. (24.2-36.6) 05/26/18 09:24 Sodium 137 mmol/L (137-145) 05/28/18 04:51 Potassium 3.9 mmol/L (3.6-5.0) 05/28/18 04:51 Chloride 98.0 mmol/L (98-107) 05/28/18 04:51 Carbon Dioxide 29 mmol/L (22-30) 05/28/18 04:51 Anion Gap 14 mmol/L 05/28/18 04:51 BUN 14 mg/dL (9-20) 05/28/18 04:51 Creatinine 1.0 mg/dL (0.8-1.5) 05/28/18 04:51 Estimated GFR > 60 ml/min 05/28/18 04:51 BUN/Creatinine Ratio 14 % 05/28/18 04:51 Glucose 102 mg/dL (75-100) H 05/28/18 04:51 Calcium 9.7 mg/dL (8.4-10.2) 05/28/18 04:51 Magnesium 2.00 mg/dL (1.7-2.3) 05/28/18 04:51 Total Bilirubin 0.50 mg/dL (0.1-1.2) 05/26/18 08:24 Direct Bilirubin < 0.2 mg/dL (0-0.2) 05/26/18 08:24 Indirect Bilirubin 0.3 mg/dL 05/26/18 08:24 AST 19 units/L (5-40) 05/26/18 08:24 ALT 20 units/L (7-56) 05/26/18 08:24 Alkaline Phosphatase 74 units/L (35-129) 05/26/18 08:24 Total Creatine Kinase 89 units/L (55-170) 05/26/18 08:24 CK-MB (CK-2) 2.2 ng/mL (0.0-4.0) 05/26/18 08:24 CK-MB (CK-2) Rel Index 2.4 (0-4) 05/26/18 08:24 Troponin T 0.010 ng/mL (0.00-0.029) 05/26/18 08:24 NT-Pro-B Natriuret Pep 3119 pg/mL (0-900) H 05/26/18 08:24 Total Protein 7.2 g/dL (6.3-8.2) 05/26/18 08:24 Albumin 3.5 g/dL (3.9-5) L 05/26/18 08:24 Albumin/Globulin Ratio 0.9 % 05/26/18 08:24
[2018-05-29] MEDS: UNASYN/NS 1.5 GM/50 ML 1.5 GM/50 ML BAG IV SCH ×5 (00:39→23:13)
[2018-05-29] MEDS: LASIX IV SCH ×2 (06:09→19:08)
--- NOTE | 2018-05-29 09:22 | Progress Note ---
Assessment and Plan Acute systolic heart failure EF 10-15% by echo no significant reversible ischemia on MPI this admission Plan: Continue medical therapy for decompensated heart failure. Fluid restriction to 1.5 L daily Awaits lifevest placement before discharge. Subjective Date of service: 05/29/18 Interval history: Patient is resting in bed comfortably. He has no complaints. Objective Vital Signs Temp Pulse Resp BP Pulse Ox 05/29/18 06:04 98.5 F 61 18 91/55 97 05/28/18 22:52 98.2 F 05/28/18 22:51 100 H 103/74 05/28/18 22:48 100 H 18 103/74 99 05/28/18 18:01 98.0 F 100 H 16 93/55 90 05/28/18 11:53 97.4 F L 99 H 20 105/66 98 05/28/18 10:50 112 H 106/73 - Physical Examination General: No Apparent Distress HEENT: Positive: PERRL Cardiac: Positive: Reg Rate and Rhythm Lungs: Positive: Decreased Breath Sounds Neuro: Positive: Grossly Intact Extremities: Absent: edema
[2018-05-29] MEDS: COREG PO SCH ×2 (09:47→22:15)
[2018-05-29] MEDS: BABY ASPIRIN PO SCH (09:48)
[2018-05-29] MEDS: ZESTRIL PO SCH (09:51)
[2018-05-29] MEDS: ALDACTONE PO SCH (09:52)
--- NOTE | 2018-05-29 13:59 | Progress Note ---
Assessment and Plan Assessment and plan: Patient is a 52 yo man without chronic medical problems who presents with SOB new onset Acute HFrEF, EF 10-15% Cardiology is following, optimize meds awaiting LifeVest Nonsustained ventricular tachycardia: increase beta soto therapy, awaiting Lifevest Left nipple cyst s/p excisional drainage 05/27/18 surgery consulted for drainage empiric abx tobacco and THC abuse he was counseled Awaiting on LifeVest prior to discharge History Interval history: Patient was seen and examined. Follow-up on current diagnosis of sob, improved. Overnight uneventful. Patient denies any chest pain, nausea/vomiting or severe headaches. Imaging, nursing note, chart, labs and old chart reviewed. Discussed with patient. Hospitalist Physical - Physical exam Narrative exam: GEN: WDWN, NAD, Awake, Alert, Orientated x 3 HEENT: NCAT, EOMI, PERRL, OP Clear NECK: supple, no adenopathy, no thyromegaly, no JVD CVS/HEART: RRR, normal S1S2, pulses present bilaterally CHEST/LUNGS: diminished bs bilaterally, Symmetrical chest expansion, good air entry bilaterally GI/Abdomen: soft, NTND, good bowel sounds, no guarding or rebound /Bladder: no suprapubic tenderness, no CVA or paraspinal tenderness EXT/Skin: left nipple cyst smaller with surgical excision and packing in place MSK: FROM x 4 Neuro: CN 2-12 grossly intact, no new focal deficits Psych: calm - Constitutional Vitals: Temp Pulse Resp BP Pulse Ox 97.8 F 65 20 104/67 98 05/29/18 11:56 05/29/18 11:56 05/29/18 11:56 05/29/18 11:56 05/29/18 11:56 General appearance: Present: no acute distress Results - Labs CBC & Chem 7: 05/28/18 04:51 05/28/18 04:51 Labs: Laboratory Last Values WBC 11.4 K/mm3 (4.5-11.0) H 05/28/18 04:51 RBC 5.10 M/mm3 (3.65-5.03) H 05/28/18 04:51 Hgb 14.3 gm/dl (11.8-15.2) 05/28/18 04:51 Hct 43.4 % (35.5-45.6) 05/28/18 04:51 MCV 85 fl (84-94) 05/28/18 04:51 MCH 28 pg (28-32) 05/28/18 04:51 MCHC 33 % (32-34) 05/28/18 04:51 RDW 14.5 % (13.2-15.2) 05/28/18 04:51 Plt Count 337 K/mm3 (140-440) 05/28/18 04:51 Lymph % (Auto) 14.3 % (13.4-35.0) 05/26/18 08:24 [place] % (Auto) 6.5 % (0.0-7.3) 05/26/18 08:24 Eos % (Auto) 1.3 % (0.0-4.3) 05/26/18 08:24 Baso % (Auto) 0.4 % (0.0-1.8) 05/26/18 08:24 Lymph # 1.9 K/mm3 (1.2-5.4) 05/26/18 08:24 [place] # 0.9 K/mm3 (0.0-0.8) H 05/26/18 08:24 Eos # 0.2 K/mm3 (0.0-0.4) 05/26/18 08:24 Baso # 0.1 K/mm3 (0.0-0.1) 05/26/18 08:24 Seg Neutrophils % 77.5 % (40.0-70.0) H 05/26/18 08:24 Seg Neutrophils # 10.3 K/mm3 (1.8-7.7) H 05/26/18 08:24 PT 14.2 Sec. (12.2-14.9) 05/26/18 09:24 INR 1.05 (0.87-1.13) 05/26/18 09:24 APTT 31.0 Sec. (24.2-36.6) 05/26/18 09:24 Sodium 137 mmol/L (137-145) 05/28/18 04:51 Potassium 3.9 mmol/L (3.6-5.0) 05/28/18 04:51 Chloride 98.0 mmol/L (98-107) 05/28/18 04:51 Carbon Dioxide 29 mmol/L (22-30) 05/28/18 04:51 Anion Gap 14 mmol/L 05/28/18 04:51 BUN 14 mg/dL (9-20) 05/28/18 04:51 Creatinine 1.0 mg/dL (0.8-1.5) 05/28/18 04:51 Estimated GFR > 60 ml/min 05/28/18 04:51 BUN/Creatinine Ratio 14 % 05/28/18 04:51 Glucose 102 mg/dL (75-100) H 05/28/18 04:51 Calcium 9.7 mg/dL (8.4-10.2) 05/28/18 04:51 Magnesium 2.00 mg/dL (1.7-2.3) 05/28/18 04:51 Total Bilirubin 0.50 mg/dL (0.1-1.2) 05/26/18 08:24 Direct Bilirubin < 0.2 mg/dL (0-0.2) 05/26/18 08:24 Indirect Bilirubin 0.3 mg/dL 05/26/18 08:24 AST 19 units/L (5-40) 05/26/18 08:24 ALT 20 units/L (7-56) 05/26/18 08:24 Alkaline Phosphatase 74 units/L (35-129) 05/26/18 08:24 Total Creatine Kinase 89 units/L (55-170) 05/26/18 08:24 CK-MB (CK-2) 2.2 ng/mL (0.0-4.0) 05/26/18 08:24 CK-MB (CK-2) Rel Index 2.4 (0-4) 05/26/18 08:24 Troponin T 0.010 ng/mL (0.00-0.029) 05/26/18 08:24 NT-Pro-B Natriuret Pep 3119 pg/mL (0-900) H 05/26/18 08:24 Total Protein 7.2 g/dL (6.3-8.2) 05/26/18 08:24 Albumin 3.5 g/dL (3.9-5) L 05/26/18 08:24 Albumin/Globulin Ratio 0.9 % 05/26/18 08:24
[2018-05-30] MEDS: LASIX IV SCH (05:50)
[2018-05-30] MEDS: UNASYN/NS 1.5 GM/50 ML 1.5 GM/50 ML BAG IV SCH ×4 (05:50→23:24)
--- NOTE | 2018-05-30 10:16 | Progress Note ---
Assessment and Plan Acute systolic heart failure EF 10-15% by echo no significant reversible ischemia on MPI this admission Plan: Continue medical therapy for decompensated heart failure. Fluid restriction to 1.5 L daily Awaits lifevest placement before discharge. Subjective Date of service: 05/30/18 Interval history: Patient is resting in bed comfortably. He has no complaints. 4 beat NSVT on telemetry. Patient remains asymptomatic. Awaits lifevest placement. Objective Vital Signs Temp Pulse Resp BP Pulse Ox 05/30/18 05:36 97.9 F 100 H 18 101/66 99 05/30/18 00:40 97.8 F 97 H 16 95/60 96 05/29/18 22:15 94 H 110/77 05/29/18 22:00 98 05/29/18 18:36 98.6 F 76 20 107/70 97 05/29/18 11:56 97.8 F 65 20 104/67 98 - Physical Examination General: No Apparent Distress HEENT: Positive: PERRL Cardiac: Positive: Reg Rate and Rhythm Lungs: Positive: Decreased Breath Sounds Neuro: Positive: Grossly Intact Extremities: Absent: edema
[2018-05-30] MEDS: ALDACTONE PO SCH (11:10)
[2018-05-30] MEDS: BABY ASPIRIN PO SCH (11:11)
[2018-05-30] MEDS: ZESTRIL PO SCH (11:11)
[2018-05-30] MEDS: COREG PO SCH ×2 (11:12→23:25)
--- NOTE | 2018-05-30 13:24 | Event Note ---
Date: 05/30/18 Confirmed with patient that staff is doing dressing changes. Wound area is less swollen. He was appreciative. Please call with questions.
[2018-05-31] MEDS: UNASYN/NS 1.5 GM/50 ML 1.5 GM/50 ML BAG IV SCH ×2 (06:13→12:31)
[2018-05-31] MEDS: LASIX PO SCH (06:13)
[2018-05-31] MEDS ORDERED: LASIX IV SCH (10:00)
--- NOTE | 2018-05-31 10:07 | Progress Note ---
Assessment and Plan 1. Chronic combined systolic and diastolic hypertension. 2. Dilated nonischemic cardiomyopathy LV ejection fraction 10-15%. 3. Nonsustained ventricular tachycardia 4 beats Plan. Currently stable on present medication Life vest pending Subjective Date of service: 05/31/18 Interval history: No cardiac complains. Objective Vital Signs Temp Pulse Resp BP Pulse Ox 05/31/18 05:27 98.3 F 98 H 18 91/54 96 05/30/18 23:29 98.0 F 18 102/55 05/30/18 23:25 91 H 102/55 05/30/18 18:04 97.7 F 20 110/69 05/30/18 12:35 98.5 F 20 105/75 05/30/18 11:46 98.6 F 20 164/81 05/30/18 11:12 104 H 110/80 05/30/18 11:11 104 H 110/80 05/30/18 11:10 104 H 110/80 - Physical Examination General: No Apparent Distress HEENT: Positive: PERRL Neck: Positive: neck supple. Negative: JVD/HJR Cardiac: Positive: Regular Rate, S1/S2, S3, PMI, Laterally Displaced Lungs: Positive: clear to auscultation, No Wheeze, Rales, Rhonchi Neuro: Positive: Grossly Intact Abdomen: Positive: Unremarkable, Soft, Active Bowel Sounds Skin: Positive: Clear Extremities: Absent: edema
[2018-05-31] MEDS: COREG PO SCH ×2 (10:28→22:28)
[2018-05-31] MEDS: ALDACTONE PO SCH (10:30)
[2018-05-31] MEDS: BABY ASPIRIN PO SCH (10:30)
[2018-05-31] MEDS: ZESTRIL PO SCH (12:17)
--- NOTE | 2018-05-31 13:25 | Progress Note ---
Assessment and Plan Assessment and plan: Patient is a 52 yo man without chronic medical problems who presents with SOB new onset Acute HFrEF, EF 10-15% Cardiology is following, optimize meds awaiting LifeVest Nonsustained ventricular tachycardia: increase beta soto therapy, awaiting Lifevest Left nipple cyst s/p excisional drainage 05/27/18 surgery consulted for drainage empiric abx, change iv unasyn to augmentin x 2 days tobacco and THC abuse he was counseled Awaiting on LifeVest prior to discharge History Interval history: Patient was seen and examined. Follow-up on current diagnosis of sob, improved. Overnight uneventful. Patient denies any chest pain, nausea/vomiting or severe headaches. Imaging, nursing note, chart, labs and old chart reviewed. Discussed with patient. Hospitalist Physical - Physical exam Narrative exam: GEN: WDWN, NAD, Awake, Alert, Orientated x 3 HEENT: NCAT, EOMI, PERRL, OP Clear NECK: supple, no adenopathy, no thyromegaly, no JVD CVS/HEART: RRR, normal S1S2, pulses present bilaterally CHEST/LUNGS: diminished bs bilaterally, Symmetrical chest expansion, good air entry bilaterally GI/Abdomen: soft, NTND, good bowel sounds, no guarding or rebound /Bladder: no suprapubic tenderness, no CVA or paraspinal tenderness EXT/Skin: left nipple cyst smaller with surgical excision and packing in place MSK: FROM x 4 Neuro: CN 2-12 grossly intact, no new focal deficits Psych: calm - Constitutional Vitals: Temp Pulse Resp BP Pulse Ox 97.8 F 98 H 18 107/68 96 05/31/18 12:37 05/31/18 05:27 05/31/18 12:37 05/31/18 12:37 05/31/18 05:27 General appearance: Present: no acute distress Results - Labs CBC & Chem 7: 05/28/18 04:51 05/28/18 04:51 Labs: Laboratory Last Values WBC 11.4 K/mm3 (4.5-11.0) H 05/28/18 04:51 RBC 5.10 M/mm3 (3.65-5.03) H 05/28/18 04:51 Hgb 14.3 gm/dl (11.8-15.2) 05/28/18 04:51 Hct 43.4 % (35.5-45.6) 05/28/18 04:51 MCV 85 fl (84-94) 05/28/18 04:51 MCH 28 pg (28-32) 05/28/18 04:51 MCHC 33 % (32-34) 05/28/18 04:51 RDW 14.5 % (13.2-15.2) 05/28/18 04:51 Plt Count 337 K/mm3 (140-440) 05/28/18 04:51 Lymph % (Auto) 14.3 % (13.4-35.0) 05/26/18 08:24 [place] % (Auto) 6.5 % (0.0-7.3) 05/26/18 08:24 Eos % (Auto) 1.3 % (0.0-4.3) 05/26/18 08:24 Baso % (Auto) 0.4 % (0.0-1.8) 05/26/18 08:24 Lymph # 1.9 K/mm3 (1.2-5.4) 05/26/18 08:24 [place] # 0.9 K/mm3 (0.0-0.8) H 05/26/18 08:24 Eos # 0.2 K/mm3 (0.0-0.4) 05/26/18 08:24 Baso # 0.1 K/mm3 (0.0-0.1) 05/26/18 08:24 Seg Neutrophils % 77.5 % (40.0-70.0) H 05/26/18 08:24 Seg Neutrophils # 10.3 K/mm3 (1.8-7.7) H 05/26/18 08:24 PT 14.2 Sec. (12.2-14.9) 05/26/18 09:24 INR 1.05 (0.87-1.13) 05/26/18 09:24 APTT 31.0 Sec. (24.2-36.6) 05/26/18 09:24 Sodium 137 mmol/L (137-145) 05/28/18 04:51 Potassium 3.9 mmol/L (3.6-5.0) 05/28/18 04:51 Chloride 98.0 mmol/L (98-107) 05/28/18 04:51 Carbon Dioxide 29 mmol/L (22-30) 05/28/18 04:51 Anion Gap 14 mmol/L 05/28/18 04:51 BUN 14 mg/dL (9-20) 05/28/18 04:51 Creatinine 1.0 mg/dL (0.8-1.5) 05/28/18 04:51 Estimated GFR > 60 ml/min 05/28/18 04:51 BUN/Creatinine Ratio 14 % 05/28/18 04:51 Glucose 102 mg/dL (75-100) H 05/28/18 04:51 Calcium 9.7 mg/dL (8.4-10.2) 05/28/18 04:51 Magnesium 2.00 mg/dL (1.7-2.3) 05/28/18 04:51 Total Bilirubin 0.50 mg/dL (0.1-1.2) 05/26/18 08:24 Direct Bilirubin < 0.2 mg/dL (0-0.2) 05/26/18 08:24 Indirect Bilirubin 0.3 mg/dL 05/26/18 08:24 AST 19 units/L (5-40) 05/26/18 08:24 ALT 20 units/L (7-56) 05/26/18 08:24 Alkaline Phosphatase 74 units/L (35-129) 05/26/18 08:24 Total Creatine Kinase 89 units/L (55-170) 05/26/18 08:24 CK-MB (CK-2) 2.2 ng/mL (0.0-4.0) 05/26/18 08:24 CK-MB (CK-2) Rel Index 2.4 (0-4) 05/26/18 08:24 Troponin T 0.010 ng/mL (0.00-0.029) 05/26/18 08:24 NT-Pro-B Natriuret Pep 3119 pg/mL (0-900) H 05/26/18 08:24 Total Protein 7.2 g/dL (6.3-8.2) 05/26/18 08:24 Albumin 3.5 g/dL (3.9-5) L 05/26/18 08:24 Albumin/Globulin Ratio 0.9 % 05/26/18 08:24
[2018-05-31] MEDS ORDERED: MAGNESIUM SULFATE 2GM/50ML 2 GM/50 ML BAG IV ONE (16:00)
[2018-05-31 16:23] LABS: BUN/Creatinine Ratio 21; Blood Urea Nitrogen 21 mg/dL (9-20); Calcium 9.3 mg/dL (8.4-10.2); Hemolysis Index 12
[2018-05-31] MEDS: AUGMENTIN 875 MG PO SCH (22:28)
[2018-06-01 05:33] LABS: BUN/Creatinine Ratio 20; Blood Urea Nitrogen 18 mg/dL (9-20); Calcium 9.1 mg/dL (8.4-10.2); Hemolysis Index 0
[2018-06-01 05:35] LABS: Creatine Kinase MB 1.9 ng/mL (0.0-4.0)
[2018-06-01] MEDS: LASIX PO SCH (06:25)
--- NOTE | 2018-06-01 09:32 | Progress Note ---
Assessment and Plan 1. Chronic combined systolic and diastolic hypertension. 2. Dilated nonischemic cardiomyopathy LV ejection fraction 10-15%. 3. Nonsustained ventricular tachycardia 4 beats Plan. Currently stable on present medication Life vest pending Subjective Date of service: 06/01/18 Interval history: No cardiac complains. Objective Vital Signs Temp Pulse Resp Resp BP Pulse Ox 06/01/18 05:10 98.0 F 92 H 24 106/78 99 06/01/18 00:19 97.6 F 98 H 18 97 06/01/18 00:18 94 H 111/80 99 05/31/18 22:28 94 H 126/87 05/31/18 22:00 17 05/31/18 18:23 98.4 F 111 H 20 154/88 99 05/31/18 18:20 98.4 F 104 H 20 115/71 96 05/31/18 12:37 97.8 F 18 107/68 05/31/18 12:17 101/73 05/31/18 10:30 101/70 05/31/18 10:28 101/70 - Physical Examination General: No Apparent Distress HEENT: Positive: PERRL Neck: Positive: neck supple. Negative: JVD/HJR Cardiac: Positive: Reg Rate and Rhythm, Regular Rate, S1/S2, S3, PMI, Laterally Displaced Lungs: Positive: Normal Exam, clear to auscultation, No Wheeze, Rales, Rhonchi Neuro: Positive: Grossly Intact Abdomen: Positive: Unremarkable, Soft, Active Bowel Sounds Skin: Positive: Clear Extremities: Absent: edema - Labs and Meds Cardiac Enzymes 06/01/18 Range/Units 04:11 CK-MB (CK-2) 1.9 (0.0-4.0) ng/mL Comprehensive Metabolic Panel 05/31/18 06/01/18 Range/Units 15:41 04:11 Sodium 134 L 138 (137-145) mmol/L Potassium 5.0 D 4.6 (3.6-5.0) mmol/L Chloride 97.7 L 98.8 (98-107) mmol/L Carbon Dioxide 27 26 (22-30) mmol/L BUN 21 H 18 (9-20) mg/dL Creatinine 1.0 0.9 (0.8-1.5) mg/dL Glucose 88 101 H (75-100) mg/dL Calcium 9.3 9.1 (8.4-10.2) mg/dL
[2018-06-01] MEDS: COREG PO SCH ×2 (11:00→22:29)
[2018-06-01] MEDS: ZESTRIL PO SCH (11:00)
[2018-06-01] MEDS: BABY ASPIRIN PO SCH (11:01)
[2018-06-01] MEDS: ALDACTONE PO SCH (11:01)
[2018-06-01] MEDS: AUGMENTIN 875 MG PO SCH ×2 (11:02→22:31)
--- NOTE | 2018-06-01 11:55 | Progress Note ---
Assessment and Plan Assessment and plan: Patient is a 52 yo man without chronic medical problems who presents with SOB new onset Acute HFrEF, EF 10-15% Cardiology is following, optimize meds awaiting LifeVest Nonsustained ventricular tachycardia: increase beta soto therapy, awaiting Lifevest Left nipple cyst s/p excisional drainage 05/27/18 surgery consulted for drainage empiric abx, change iv unasyn to augmentin x 2 days tobacco and THC abuse he was counseled Awaiting on LifeVest prior to discharge History Interval history: Patient was seen and examined. Follow-up on current diagnosis of sob, improved. Overnight uneventful. Patient denies any chest pain, nausea/vomiting or severe headaches. Imaging, nursing note, chart, labs and old chart reviewed. Discussed with patient. Hospitalist Physical - Physical exam Narrative exam: GEN: WDWN, NAD, Awake, Alert, Orientated x 3 HEENT: NCAT, EOMI, PERRL, OP Clear NECK: supple, no adenopathy, no thyromegaly, no JVD CVS/HEART: RRR, normal S1S2, pulses present bilaterally CHEST/LUNGS: diminished bs bilaterally, Symmetrical chest expansion, good air entry bilaterally GI/Abdomen: soft, NTND, good bowel sounds, no guarding or rebound /Bladder: no suprapubic tenderness, no CVA or paraspinal tenderness EXT/Skin: left nipple cyst smaller with surgical excision and packing in place MSK: FROM x 4 Neuro: CN 2-12 grossly intact, no new focal deficits Psych: calm - Constitutional Vitals: Temp Pulse Resp BP Pulse Ox 98.0 F 92 H 24 121/72 99 06/01/18 05:10 06/01/18 05:10 06/01/18 05:10 06/01/18 11:01 06/01/18 05:10 General appearance: Present: no acute distress Results - Labs CBC & Chem 7: 05/28/18 04:51 06/01/18 04:11 Labs: Laboratory Last Values WBC 11.4 K/mm3 (4.5-11.0) H 05/28/18 04:51 RBC 5.10 M/mm3 (3.65-5.03) H 05/28/18 04:51 Hgb 14.3 gm/dl (11.8-15.2) 05/28/18 04:51 Hct 43.4 % (35.5-45.6) 05/28/18 04:51 MCV 85 fl (84-94) 05/28/18 04:51 MCH 28 pg (28-32) 05/28/18 04:51 MCHC 33 % (32-34) 05/28/18 04:51 RDW 14.5 % (13.2-15.2) 05/28/18 04:51 Plt Count 337 K/mm3 (140-440) 05/28/18 04:51 Lymph % (Auto) 14.3 % (13.4-35.0) 05/26/18 08:24 [place] % (Auto) 6.5 % (0.0-7.3) 05/26/18 08:24 Eos % (Auto) 1.3 % (0.0-4.3) 05/26/18 08:24 Baso % (Auto) 0.4 % (0.0-1.8) 05/26/18 08:24 Lymph # 1.9 K/mm3 (1.2-5.4) 05/26/18 08:24 [place] # 0.9 K/mm3 (0.0-0.8) H 05/26/18 08:24 Eos # 0.2 K/mm3 (0.0-0.4) 05/26/18 08:24 Baso # 0.1 K/mm3 (0.0-0.1) 05/26/18 08:24 Seg Neutrophils % 77.5 % (40.0-70.0) H 05/26/18 08:24 Seg Neutrophils # 10.3 K/mm3 (1.8-7.7) H 05/26/18 08:24 PT 14.2 Sec. (12.2-14.9) 05/26/18 09:24 INR 1.05 (0.87-1.13) 05/26/18 09:24 APTT 31.0 Sec. (24.2-36.6) 05/26/18 09:24 Sodium 138 mmol/L (137-145) 06/01/18 04:11 Potassium 4.6 mmol/L (3.6-5.0) 06/01/18 04:11 Chloride 98.8 mmol/L (98-107) 06/01/18 04:11 Carbon Dioxide 26 mmol/L (22-30) 06/01/18 04:11 Anion Gap 18 mmol/L 06/01/18 04:11 BUN 18 mg/dL (9-20) 06/01/18 04:11 Creatinine 0.9 mg/dL (0.8-1.5) 06/01/18 04:11 Estimated GFR > 60 ml/min 06/01/18 04:11 BUN/Creatinine Ratio 20 % 06/01/18 04:11 Glucose 101 mg/dL (75-100) H 06/01/18 04:11 Calcium 9.1 mg/dL (8.4-10.2) 06/01/18 04:11 Magnesium 2.30 mg/dL (1.7-2.3) 06/01/18 04:11 Total Bilirubin 0.50 mg/dL (0.1-1.2) 05/26/18 08:24 Direct Bilirubin < 0.2 mg/dL (0-0.2) 05/26/18 08:24 Indirect Bilirubin 0.3 mg/dL 05/26/18 08:24 AST 19 units/L (5-40) 05/26/18 08:24 ALT 20 units/L (7-56) 05/26/18 08:24 Alkaline Phosphatase 74 units/L (35-129) 05/26/18 08:24 Total Creatine Kinase 98 units/L (55-170) 06/01/18 04:11 CK-MB (CK-2) 1.9 ng/mL (0.0-4.0) 06/01/18 04:11 CK-MB (CK-2) Rel Index 2.4 (0-4) 05/26/18 08:24 Troponin T 0.010 ng/mL (0.00-0.029) 05/26/18 08:24 NT-Pro-B Natriuret Pep 3119 pg/mL (0-900) H 05/26/18 08:24 Total Protein 7.2 g/dL (6.3-8.2) 05/26/18 08:24 Albumin 3.5 g/dL (3.9-5) L 05/26/18 08:24 Albumin/Globulin Ratio 0.9 % 05/26/18 08:24
[2018-06-02] MEDS: LASIX PO SCH (06:18)
[2018-06-02 07:53] LABS: BUN/Creatinine Ratio 20; Blood Urea Nitrogen 20 mg/dL (9-20); Calcium 9.6 mg/dL (8.4-10.2); Hemolysis Index 4
[2018-06-02] MEDS: AUGMENTIN 875 MG PO SCH (08:58)
[2018-06-02] MEDS: BABY ASPIRIN PO SCH ×2 (08:58→15:46)
[2018-06-02] MEDS: ZESTRIL PO SCH ×2 (08:58→15:46)
[2018-06-02] MEDS: ALDACTONE PO SCH ×2 (08:58→15:46)
[2018-06-02] MEDS: COREG PO SCH ×2 (08:59→22:58)
--- NOTE | 2018-06-02 10:48 | Progress Note ---
Assessment and Plan - Patient Problems (1) Cardiomyopathy Current Visit: Yes Status: Acute Subjective Date of service: 06/02/18 Interval history: NO C\O,,,,WANTS TO GO,,,,,,,,,,,REFUSED LIFE [employer] ON THE [place] Objective Vital Signs Temp Pulse Resp Resp BP BP Pulse Ox 06/02/18 09:01 90 16 112/65 98 06/02/18 08:58 90 112/65 06/02/18 04:15 97.9 F 86 24 101/68 96 06/02/18 00:23 97.6 F 80 24 98 06/01/18 22:29 86 106/73 06/01/18 22:00 17 06/01/18 12:38 98.4 F 18 101/60 06/01/18 11:01 121/72 06/01/18 11:00 121/72 - Physical Examination General: No Apparent Distress HEENT: Positive: PERRL Neck: Positive: neck supple. Negative: JVD/HJR Cardiac: Positive: Reg Rate and Rhythm Lungs: Positive: clear to auscultation Neuro: Positive: Grossly Intact Abdomen: Positive: Unremarkable, Soft, Active Bowel Sounds Skin: Positive: Clear Extremities: Absent: edema - Labs and Meds Comprehensive Metabolic Panel 06/02/18 Range/Units 06:53 Sodium 140 (137-145) mmol/L Potassium 4.9 (3.6-5.0) mmol/L Chloride 100.1 (98-107) mmol/L Carbon Dioxide 28 (22-30) mmol/L BUN 20 (9-20) mg/dL Creatinine 1.0 (0.8-1.5) mg/dL Glucose 94 (75-100) mg/dL Calcium 9.6 (8.4-10.2) mg/dL
--- NOTE | 2018-06-02 11:14 | Progress Note ---
Assessment and Plan Assessment and plan: Patient is a 52 yo man without chronic medical problems who presents with SOB new onset Acute HFrEF, EF 10-15% Cardiology is following, optimize meds awaiting LifeVest Nonsustained ventricular tachycardia: increase beta soto therapy, awaiting Lifevest Left nipple cyst s/p excisional drainage 05/27/18 surgery consulted for drainage empiric abx, change iv unasyn to augmentin tobacco and THC abuse he was counseled Awaiting on LifeVest prior to discharge History Interval history: Patient was seen and examined. Follow-up on current diagnosis of sob, improved. Overnight uneventful. Patient denies any chest pain, nausea/vomiting or severe headaches. Imaging, nursing note, chart, labs and old chart reviewed. Discussed with patient. Hospitalist Physical - Physical exam Narrative exam: GEN: WDWN, NAD, Awake, Alert, Orientated x 3 HEENT: NCAT, EOMI, PERRL, OP Clear NECK: supple, no adenopathy, no thyromegaly, no JVD CVS/HEART: RRR, normal S1S2, pulses present bilaterally CHEST/LUNGS: diminished bs bilaterally, Symmetrical chest expansion, good air entry bilaterally GI/Abdomen: soft, NTND, good bowel sounds, no guarding or rebound /Bladder: no suprapubic tenderness, no CVA or paraspinal tenderness EXT/Skin: left nipple cyst smaller with surgical excision and packing in place MSK: FROM x 4 Neuro: CN 2-12 grossly intact, no new focal deficits Psych: calm - Constitutional Vitals: Temp Pulse Resp BP Pulse Ox 97.9 F 90 16 112/65 98 06/02/18 04:15 06/02/18 09:01 06/02/18 09:01 06/02/18 09:01 06/02/18 09:01 General appearance: Present: no acute distress Results - Labs CBC & Chem 7: 05/28/18 04:51 06/02/18 06:53 Labs: Laboratory Last Values WBC 11.4 K/mm3 (4.5-11.0) H 05/28/18 04:51 RBC 5.10 M/mm3 (3.65-5.03) H 05/28/18 04:51 Hgb 14.3 gm/dl (11.8-15.2) 05/28/18 04:51 Hct 43.4 % (35.5-45.6) 05/28/18 04:51 MCV 85 fl (84-94) 05/28/18 04:51 MCH 28 pg (28-32) 05/28/18 04:51 MCHC 33 % (32-34) 05/28/18 04:51 RDW 14.5 % (13.2-15.2) 05/28/18 04:51 Plt Count 337 K/mm3 (140-440) 05/28/18 04:51 Lymph % (Auto) 14.3 % (13.4-35.0) 05/26/18 08:24 [place] % (Auto) 6.5 % (0.0-7.3) 05/26/18 08:24 Eos % (Auto) 1.3 % (0.0-4.3) 05/26/18 08:24 Baso % (Auto) 0.4 % (0.0-1.8) 05/26/18 08:24 Lymph # 1.9 K/mm3 (1.2-5.4) 05/26/18 08:24 [place] # 0.9 K/mm3 (0.0-0.8) H 05/26/18 08:24 Eos # 0.2 K/mm3 (0.0-0.4) 05/26/18 08:24 Baso # 0.1 K/mm3 (0.0-0.1) 05/26/18 08:24 Seg Neutrophils % 77.5 % (40.0-70.0) H 05/26/18 08:24 Seg Neutrophils # 10.3 K/mm3 (1.8-7.7) H 05/26/18 08:24 PT 14.2 Sec. (12.2-14.9) 05/26/18 09:24 INR 1.05 (0.87-1.13) 05/26/18 09:24 APTT 31.0 Sec. (24.2-36.6) 05/26/18 09:24 Sodium 140 mmol/L (137-145) 06/02/18 06:53 Potassium 4.9 mmol/L (3.6-5.0) 06/02/18 06:53 Chloride 100.1 mmol/L (98-107) 06/02/18 06:53 Carbon Dioxide 28 mmol/L (22-30) 06/02/18 06:53 Anion Gap 17 mmol/L 06/02/18 06:53 BUN 20 mg/dL (9-20) 06/02/18 06:53 Creatinine 1.0 mg/dL (0.8-1.5) 06/02/18 06:53 Estimated GFR > 60 ml/min 06/02/18 06:53 BUN/Creatinine Ratio 20 % 06/02/18 06:53 Glucose 94 mg/dL (75-100) 06/02/18 06:53 Calcium 9.6 mg/dL (8.4-10.2) 06/02/18 06:53 Magnesium 2.20 mg/dL (1.7-2.3) 06/02/18 06:53 Total Bilirubin 0.50 mg/dL (0.1-1.2) 05/26/18 08:24 Direct Bilirubin < 0.2 mg/dL (0-0.2) 05/26/18 08:24 Indirect Bilirubin 0.3 mg/dL 05/26/18 08:24 AST 19 units/L (5-40) 05/26/18 08:24 ALT 20 units/L (7-56) 05/26/18 08:24 Alkaline Phosphatase 74 units/L (35-129) 05/26/18 08:24 Total Creatine Kinase 98 units/L (55-170) 06/01/18 04:11 CK-MB (CK-2) 1.9 ng/mL (0.0-4.0) 06/01/18 04:11 CK-MB (CK-2) Rel Index 2.4 (0-4) 05/26/18 08:24 Troponin T 0.010 ng/mL (0.00-0.029) 05/26/18 08:24 NT-Pro-B Natriuret Pep 3119 pg/mL (0-900) H 05/26/18 08:24 Total Protein 7.2 g/dL (6.3-8.2) 05/26/18 08:24 Albumin 3.5 g/dL (3.9-5) L 05/26/18 08:24 Albumin/Globulin Ratio 0.9 % 05/26/18 08:24
--- NOTE | 2018-06-02 11:19 | Discharge Summary ---
Providers - Providers Date of Admission: 05/26/18 11:37 Date of discharge: 06/02/18 Attending physician: POONAM RODAS 05/26/18 13:32 Consult to Physician [CONS] Routine Comment: Consulting Provider: ANGEL ORTIZ Physician Instructions: Reason For Exam: chf 05/26/18 18:12 Consult to Physician [CONS] Routine Comment: Consulting Provider: JEAN BELL Physician Instructions: Reason For Exam: abcess, left nipple Primary care physician: PRICING MANAGER Hospitalization Condition: Fair Hospital course: Patient is a 52 yo man without chronic medical problems who presents with SOB new onset Acute HFrEF, EF 10-15% Cardiology is following, optimize meds awaiting LifeVest Nonsustained ventricular tachycardia: increase beta soto therapy, awaiting Lifevest Left nipple cyst s/p excisional drainage 05/27/18 surgery consulted for drainage finished abx tobacco and THC abuse he was counseled on stopping Awaiting on LifeVest prior to discharge Disposition: [facility]-01 TO HOME OR SELFCARE Time spent for discharge: 35 minutes Core Measure Documentation - Palliative Care Palliative Care/ Comfort Measures: Not Applicable - Core Measures Any of the following diagnoses?: none - VTE Discharge Requirements Deep Vein Thrombosis/Pulmonary Embolism Present on Admission: No Has pt received <5 days of overlap therapy or INR<2.0: No Anticoagulant overlap therapy prescribed at discharge: No Contraindication No Overlap Therapy order at DC: Not Indicated Exam - Physical Exam Narrative exam: GEN: WDWN, NAD, Awake, Alert, Orientated x 3 HEENT: NCAT, EOMI, PERRL, OP Clear, severe tooth decay, with protubing lower teeth out of the mouth NECK: supple, no adenopathy, no thyromegaly, no JVD CVS/HEART: RRR, normal S1S2, pulses present bilaterally CHEST/LUNGS: diminished bs bilaterally, Symmetrical chest expansion, good air entry bilaterally GI/Abdomen: soft, NTND, good bowel sounds, no guarding or rebound /Bladder: no suprapubic tenderness, no CVA or paraspinal tenderness EXT/Skin: left nipple cyst smaller with surgical excision and packing in place MSK: FROM x 4 Neuro: CN 2-12 grossly intact, no new focal deficits Psych: calm - Constitutional Vitals: Temp Pulse Resp BP Pulse Ox 97.9 F 90 16 112/65 98 06/02/18 04:15 06/02/18 09:01 06/02/18 09:01 06/02/18 09:01 06/02/18 09:01 Plan Activity: other (no strenous activity) Diet: low salt Wound: per your surgeon's advice, per wound nurse instructions Follow up with: KACIE SAAB MD [Primary Care Provider] - 3-5 Days ANGEL ORTIZ MD [Staff Physician] - 7 Days JEAN BELL MD [Staff Physician] - 7 Days Prescriptions: Carvedilol [Coreg] 6.25 mg PO BID #60 tablet Furosemide [Lasix TAB] 40 mg PO DAILY@0600 #30 tablet Lisinopril [Zestril TAB] 5 mg PO QDAY #30 tablet Spironolactone [Aldactone] 25 mg PO QDAY #30 tablet
[2018-06-03] MEDS: LASIX PO SCH (06:18)
[2018-06-03 07:05] LABS: BUN/Creatinine Ratio 20; Blood Urea Nitrogen 20 mg/dL (9-20); Calcium 9.6 mg/dL (8.4-10.2); Hemolysis Index 4
[2018-06-03] MEDS: ALDACTONE PO SCH (10:08)
[2018-06-03] MEDS: BABY ASPIRIN PO SCH (10:08)
[2018-06-03] MEDS: ZESTRIL PO SCH (10:08)
[2018-06-03] MEDS: COREG PO SCH (10:08)
[2018-06-03] MEDS: AUGMENTIN 875 MG PO SCH (10:09)
--- NOTE | 2018-06-03 10:12 | Progress Note ---
Assessment and Plan Acute systolic heart failure EF 10-15% by echo no significant reversible ischemia on MPI this admission Plan: Continue medical therapy for systolic heart failure. Fluid restriction to 1.5 L daily Awaits lifevest placement before discharge. Subjective Date of service: 06/03/18 Interval history: Patient has no complaints. Awaits lifevest placement. Objective Vital Signs Temp Pulse Resp BP BP Pulse Ox 06/03/18 05:57 98.1 F 91 H 18 112/78 98 06/02/18 23:41 98.0 F 94 H 18 116/76 100 06/02/18 22:58 89 105/67 06/02/18 22:00 16 06/02/18 17:52 98.2 F 96 H 20 103/67 100 06/02/18 13:40 97.2 F L 75 18 96/60 99 - Physical Examination General: No Apparent Distress HEENT: Positive: PERRL Neck: Positive: trachea midline Cardiac: Positive: Reg Rate and Rhythm Lungs: Positive: Decreased Breath Sounds Neuro: Positive: Grossly Intact Extremities: Absent: edema - Labs and Meds Comprehensive Metabolic Panel 06/03/18 Range/Units 06:11 Sodium 137 (137-145) mmol/L Potassium 5.0 (3.6-5.0) mmol/L Chloride 98.0 (98-107) mmol/L Carbon Dioxide 28 (22-30) mmol/L BUN 20 (9-20) mg/dL Creatinine 1.0 (0.8-1.5) mg/dL Glucose 100 (75-100) mg/dL Calcium 9.6 (8.4-10.2) mg/dL
--- NOTE | 2018-06-03 16:47 | Progress Note ---
Assessment and Plan Assessment and plan: Patient is a 52 yo man without chronic medical problems who presents with SOB new onset Acute HFrEF, EF 10-15% Patient was diuresed, medications optimized. Cardiology comanaging. awaiting LifeVest Nonsustained ventricular tachycardia: increase beta soto therapy, awaiting Lifevest Left nipple cyst s/p excisional drainage 05/27/18 Status post drainage Completed antibiotics tobacco and THC abuse he was counseled Awaiting on LifeVest prior to discharge History Interval history: Nurses noted that patient had a few pauses on his telemetry Review of systems Constitutional: No fevers, no malaise, no joint pains CVS: No chest pain, no orthopnea, no dyspnea on exertion, no pedal edema GI: No abdominal pain, no diarrhea, no vomiting, no constipation Respiratory: No shortness of breath, no wheezing, no coughing Hospitalist Physical - Physical exam Narrative exam: General.: Appears well, no distress, nontoxic HEENT: Moist mucous membranes, extraocular muscles intact, no lymphadenopathy Neck: supple Cardiac: S1-S2 heard Lungs: clear to auscultation bilaterally Abdomen: soft , nontender, nondistended, bowel sounds positive Extremities: no edema clubbing or cyanosis Skin: no rash or lesions Neurologic: no gross focal deficits Psych: appropriate behavior, appropriate mood, corporative, judgment intact - Constitutional Vitals: Temp Pulse Resp BP Pulse Ox 98.7 F 84 16 122/69 100 06/03/18 13:00 06/03/18 13:00 06/03/18 13:00 06/03/18 13:00 06/03/18 13:00 General appearance: Present: no acute distress Results - Labs CBC & Chem 7: 05/28/18 04:51 06/03/18 06:11 Labs: Laboratory Last Values WBC 11.4 K/mm3 (4.5-11.0) H 05/28/18 04:51 RBC 5.10 M/mm3 (3.65-5.03) H 05/28/18 04:51 Hgb 14.3 gm/dl (11.8-15.2) 05/28/18 04:51 Hct 43.4 % (35.5-45.6) 05/28/18 04:51 MCV 85 fl (84-94) 05/28/18 04:51 MCH 28 pg (28-32) 05/28/18 04:51 MCHC 33 % (32-34) 05/28/18 04:51 RDW 14.5 % (13.2-15.2) 05/28/18 04:51 Plt Count 337 K/mm3 (140-440) 05/28/18 04:51 Lymph % (Auto) 14.3 % (13.4-35.0) 05/26/18 08:24 [place] % (Auto) 6.5 % (0.0-7.3) 05/26/18 08:24 Eos % (Auto) 1.3 % (0.0-4.3) 05/26/18 08:24 Baso % (Auto) 0.4 % (0.0-1.8) 05/26/18 08:24 Lymph # 1.9 K/mm3 (1.2-5.4) 05/26/18 08:24 [place] # 0.9 K/mm3 (0.0-0.8) H 05/26/18 08:24 Eos # 0.2 K/mm3 (0.0-0.4) 05/26/18 08:24 Baso # 0.1 K/mm3 (0.0-0.1) 05/26/18 08:24 Seg Neutrophils % 77.5 % (40.0-70.0) H 05/26/18 08:24 Seg Neutrophils # 10.3 K/mm3 (1.8-7.7) H 05/26/18 08:24 PT 14.2 Sec. (12.2-14.9) 05/26/18 09:24 INR 1.05 (0.87-1.13) 05/26/18 09:24 APTT 31.0 Sec. (24.2-36.6) 05/26/18 09:24 Sodium 137 mmol/L (137-145) 06/03/18 06:11 Potassium 5.0 mmol/L (3.6-5.0) 06/03/18 06:11 Chloride 98.0 mmol/L (98-107) 06/03/18 06:11 Carbon Dioxide 28 mmol/L (22-30) 06/03/18 06:11 Anion Gap 16 mmol/L 06/03/18 06:11 BUN 20 mg/dL (9-20) 06/03/18 06:11 Creatinine 1.0 mg/dL (0.8-1.5) 06/03/18 06:11 Estimated GFR > 60 ml/min 06/03/18 06:11 BUN/Creatinine Ratio 20 % 06/03/18 06:11 Glucose 100 mg/dL (75-100) 06/03/18 06:11 Calcium 9.6 mg/dL (8.4-10.2) 06/03/18 06:11 Magnesium 2.00 mg/dL (1.7-2.3) 06/03/18 06:11 Total Bilirubin 0.50 mg/dL (0.1-1.2) 05/26/18 08:24 Direct Bilirubin < 0.2 mg/dL (0-0.2) 05/26/18 08:24 Indirect Bilirubin 0.3 mg/dL 05/26/18 08:24 AST 19 units/L (5-40) 05/26/18 08:24 ALT 20 units/L (7-56) 05/26/18 08:24 Alkaline Phosphatase 74 units/L (35-129) 05/26/18 08:24 Total Creatine Kinase 98 units/L (55-170) 06/01/18 04:11 CK-MB (CK-2) 1.9 ng/mL (0.0-4.0) 06/01/18 04:11 CK-MB (CK-2) Rel Index 2.4 (0-4) 05/26/18 08:24 Troponin T 0.010 ng/mL (0.00-0.029) 05/26/18 08:24 NT-Pro-B Natriuret Pep 3119 pg/mL (0-900) H 05/26/18 08:24 Total Protein 7.2 g/dL (6.3-8.2) 05/26/18 08:24 Albumin 3.5 g/dL (3.9-5) L 05/26/18 08:24 Albumin/Globulin Ratio 0.9 % 05/26/18 08:24
[2018-06-03 18:55] VITALS: BP 114/72
== END 2018-06-03 18:30 | disposition home or self-care (01) | DRG 292 ==
LOC: ED 08:07 → 3A 11:37
PROVIDERS: ADMIT Internal Medicine; ATTEND Internal Medicine
PROC: 0H9XXZZ Drainage of Left Nipple, External Approach (ICD-10-PCS; principal; 2018-05-27)
DX: I11.0 Hypertensive heart disease with heart failure (principal); I47.2 Ventricular tachycardia; F17.200 Nicotine dependence, unspecified, uncomplicated; N60.02 Solitary cyst of left breast; I42.0 Dilated cardiomyopathy; F12.10 Cannabis abuse, uncomplicated; N61.1 Abscess of the breast and nipple; S20.162A Insect bite (nonvenomous) of breast, left breast, initial encounter; W57.XXXA Bitten or stung by nonvenomous insect and other nonvenomous arthropods, initial encounter; I50.23 Acute on chronic systolic (congestive) heart failure; Z71.6 Tobacco abuse counseling; Z80.9 Family history of malignant neoplasm, unspecified; Z82.49 Family history of ischemic heart disease and other diseases of the circulatory system; Y93.89 Activity, other specified; Y92.89 Other specified places as the place of occurrence of the external cause; Y99.8 Other external cause status
CPT/HCPCS: 36415; 71046; 78452; 80048; 80074; 82550; 82553; 83735; 83880; 84484; 85025; 85027; 85610; 85730; 87116; 93005; 93010; 93017; 93306; 96374; 99406; A9502; J0295; J1940; J3475